=== PATIENT | male | born 1930 | race Caucasian/White ===

== ENCOUNTER 2016-10-15 22:44 | Emergency (ER) | payer OTHER ==
[~2016-10-15] VITALS: Ht 175.3 cm; Wt 75.7 kg
[~2016-10-15 22:44] MED LIST: DOCU-94 PO; DOXY100C41 PO; NOR5T PO; PANT1INJ3 PO; TAM04C PO
[2016-10-16] LABS: DEFINITIVE VIEW TRANSMISSION; Hematocrit 29.8 % (41.0-53.0); Hemoglobin 9.1 g/dL (13.5-17.5); Mean Corpuscular Hemoglobin 29.8 pg (28.0-32.0); Mean Corpuscular Hgb Conc. 30.5 g/dL (32.0-36.0); Mean Corpuscular Volume 97.8 fL (80.0-100.0); Mean Platelet Volume 9.8 fL (7.4-10.4); Platelet Count (auto) 117 10^3/uL (140-450); SUSPECT VIEW TRANSMISSION; White Blood Cell 2.8 10^3/uL (4.4-10.8)
[2016-10-16 00:24] LABS: Calcium 8.9 mg/dL (8.5-10.1); Magnesium 2.3 mg/dL (1.6-2.6)
[2016-10-16 00:26] LABS: BUN/Creatinine Ratio 14.7
[2016-10-16 00:28] LABS: Bilirubin, Total 0.3 mg/dL (0.2-1.0); Total Protein 7.6 g/dL (6.4-8.2)
[2016-10-16 00:29] LABS: INR 1.11 (0.9-1.15); Partial Thromboplastin Time 24.9 sec (22.64-33.71); Prothrombin Time 11.4 sec (9.37-12.3)
[2016-10-16 01:03] LABS: B-Type Natriuretic Peptide 1730.52 pg/mL (0-100); Temperature: 22.7 C (20.0-25.0)
[2016-10-16 01:07] LABS: Red Cell Distribution Width 21.4 % (11.6-16.0)
[2016-10-16 01:08] LABS: Metamyelocytes % 0; Myelocytes % 0; Promyelocytes % 0; Reactive Lymphocytes 0
[2016-10-16] MEDS ORDERED: FUROSEMIDE 20 MG/2 ML VIAL IV ONE (01:45)
[2016-10-16 02:01] LABS: Anisocytosis Slight; Hypochromia Slight; Ovalocytes FEW; Platelet Estimate Decreased
[2016-10-16] MEDS ORDERED: IOHEXOL 350 MG/ML 100ML IJ ONE (03:15)
[2016-10-16 03:43] LABS: Urine Bilirubin Negative (Negative); Urine Blood Negative /uL (Negative); Urine Color Yellow (Yellow); Urine Glucose Normal (Normal); Urine Ketone Negative (Negative); Urine Mucus FEW (None Seen); Urine Nitrite Negative (Negative); Urine RBC 1 /hpf (0 - 3); Urine Urobilinogen Normal (Negative); Urine pH 5.5 (5.0-8.0)
[2016-10-16 08:12] VITALS: BP 158/76
[2016-10-16] MEDS ORDERED: METOPROLOL TARTRATE 1MG/1ML-5ML VIAL IV ONE (09:30)
[2016-10-16] MEDS ORDERED: FUROSEMIDE 40 MG/4 ML VIAL IV ONE (09:30)
== END 2016-10-16 11:56 | disposition left against medical advice (07) ==
LOC: ER 22:44
DX: I50.9 Heart failure, unspecified (principal); K21.9 Gastro-esophageal reflux disease without esophagitis; Z87.891 Personal history of nicotine dependence; I25.810 Atherosclerosis of coronary artery bypass graft(s) without angina pectoris
CPT/HCPCS: 36415; 71010; 71260; 80053; 81001; 83735; 83880; 84484; 85007; 85027; 85379; 85610; 85730; 93005; 96374; 96375; 96376; 99285; J1940; Q9967

== ENCOUNTER 2017-01-21 09:37 | Emergency (ER) | payer OTHER ==
[~2017-01-21] VITALS: Ht 180.3 cm; Wt 65.8 kg
[2017-01-21 10:42] LABS: INR 1.07 (0.9-1.15); Prothrombin Time 11.7 sec (9.37-12.3)
[2017-01-21 10:48] LABS: Albumin 4.4 g/dL (3.4-5.0); BUN/Creatinine Ratio 13.6; Bilirubin, Total 0.5 mg/dL (0.2-1.0); Calcium 9.5 mg/dL (8.5-10.1); Potassium 4.2 mmol/L (3.5-5.1); Total Protein 8.2 g/dL (6.4-8.2)
[2017-01-21 10:49] LABS: DEFINITIVE VIEW TRANSMISSION; Hematocrit 30.3 % (41.0-53.0); Hemoglobin 10.1 g/dL (13.5-17.5); Mean Corpuscular Hemoglobin 32.2 pg (28.0-32.0); Mean Corpuscular Hgb Conc. 33.5 g/dL (32.0-36.0); Mean Corpuscular Volume 96.2 fL (80.0-100.0); Mean Platelet Volume 9.1 fL (7.4-10.4); Platelet Count (auto) 142 10^3/uL (140-450); SUSPECT VIEW TRANSMISSION
[2017-01-21 10:57] LABS: Red Cell Distribution Width 23.2 % (11.6-16.0)
[2017-01-21 10:59] LABS: Metamyelocytes % 0; Myelocytes % 0; Promyelocytes % 0; Reactive Lymphocytes 0
[2017-01-21 11:17] LABS: Anisocytosis Moderate; Platelet Estimate Adequate
[2017-01-21 12:00] VITALS: BP 148/95
== END 2017-01-21 12:23 | disposition home or self-care (01) ==
LOC: ER 09:37
DX: D72.819 Decreased white blood cell count, unspecified (principal); K21.9 Gastro-esophageal reflux disease without esophagitis; Z86.73 Personal history of transient ischemic attack (TIA), and cerebral infarction without residual deficits; Z95.1 Presence of aortocoronary bypass graft; Z95.0 Presence of cardiac pacemaker; Z90.89 Acquired absence of other organs; Z88.8 Allergy status to other drugs, medicaments and biological substances
CPT/HCPCS: 36415; 80053; 85007; 85027; 85610; 85730